=== PATIENT | female | born 1950 | race Two or more races ===

== ENCOUNTER 2017-10-03 11:30 | Outpatient (CLI) | payer OTHER ==
[~2017-10-03 11:30] MED LIST: ASA81 MG PO; FIRST-OMEPR2 MG/1 ML PO; GABAPENTIN600 MG PO; METFORMIN HCL500 MG PO; PRED FORTE0.05 MG/DR OP; QUINAPRIL HCL20 MG PO; TRAVATAN Z5 ML OP; VYTORIN 10/40 M1 TAB PO
== END 2017-10-03 16:35 | disposition home or self-care (01) ==
LOC: RAD 11:30
DX: M54.5 Low back pain (principal)

== ENCOUNTER 2017-12-05 12:29 | Outpatient (CLI) | payer OTHER | END 2017-12-05 12:41 | disposition home or self-care (01) | LOC: MAMO-SONO 12:29 | DX: Z12.31 Encounter for screening mammogram for malignant neoplasm of breast (principal); Z87.898 Personal history of other specified conditions; N64.4 Mastodynia; E55.9 Vitamin D deficiency, unspecified; Z13.820 Encounter for screening for osteoporosis; N64.59 Other signs and symptoms in breast; M89.9 Disorder of bone, unspecified; G62.89 Other specified polyneuropathies; M79.7 Fibromyalgia; E78.89 Other lipoprotein metabolism disorders; E03.8 Other specified hypothyroidism; Z12.11 Encounter for screening for malignant neoplasm of colon; I10 Essential (primary) hypertension ==

== ENCOUNTER 2017-12-09 07:14 | Outpatient (CLI) | payer OTHER | END 2017-12-09 07:24 | disposition home or self-care (01) | LOC: MRI 07:14 | DX: M48.061 Spinal stenosis, lumbar region without neurogenic claudication (principal); M54.5 Low back pain; M62.81 Muscle weakness (generalized) | CPT/HCPCS: 72148 ==

== ENCOUNTER 2018-11-28 07:58 | Outpatient (CLI) | payer OTHER | END 2018-11-28 08:22 | disposition home or self-care (01) | LOC: MRI 07:58 | DX: G95.89 Other specified diseases of spinal cord (principal); R20.0 Anesthesia of skin; G37.8 Other specified demyelinating diseases of central nervous system; M54.2 Cervicalgia | CPT/HCPCS: 70551; 72141 ==

== ENCOUNTER → 2019-02-12 | Outpatient (CLI) | payer OTHER | END | disposition home or self-care (01) | LOC: MRI 11-28 08:45 → RAD 10:22 | DX: M17.0 Bilateral primary osteoarthritis of knee (principal) ==

== ENCOUNTER 2019-02-21 08:24 | Outpatient (CLI) | payer OTHER | END 2019-02-21 08:54 | disposition home or self-care (01) | LOC: LAB 08:24 | DX: D64.89 Other specified anemias (principal); E88.89 Other specified metabolic disorders; D68.8 Other specified coagulation defects; N39.0 Urinary tract infection, site not specified; Z22.322 Carrier or suspected carrier of Methicillin resistant Staphylococcus aureus; I10 Essential (primary) hypertension; E03.8 Other specified hypothyroidism; E55.9 Vitamin D deficiency, unspecified; E11.9 Type 2 diabetes mellitus without complications; E78.2 Mixed hyperlipidemia ==

== ENCOUNTER 2019-03-20 12:47 | Outpatient (CLI) | payer OTHER | END 2019-03-20 12:52 | disposition home or self-care (01) | LOC: MAMO-SONO 12:47 | DX: Z12.31 Encounter for screening mammogram for malignant neoplasm of breast (principal); Z87.898 Personal history of other specified conditions; N60.11 Diffuse cystic mastopathy of right breast; N60.12 Diffuse cystic mastopathy of left breast ==

== ENCOUNTER → 2019-06-04 | Outpatient (CLI) | payer OTHER | END | disposition home or self-care (01) | LOC: SONOGRAMA 08:06 | DX: N18.3 Chronic kidney disease, stage 3 (moderate) (principal) ==

== ENCOUNTER → 2019-06-11 | Outpatient (CLI) | payer OTHER | END | disposition home or self-care (01) | LOC: MRI 14:03 | DX: N28.89 Other specified disorders of kidney and ureter (principal); C64.9 Malignant neoplasm of unspecified kidney, except renal pelvis | CPT/HCPCS: 72197; 74183; A9575 ==

== ENCOUNTER → 2019-06-14 07:15 | Outpatient (CLI) | payer OTHER | END | disposition home or self-care (01) | LOC: LAB 07:15 | DX: I49.8 Other specified cardiac arrhythmias (principal); Z76.89 Persons encountering health services in other specified circumstances; D64.89 Other specified anemias; E88.89 Other specified metabolic disorders; D68.8 Other specified coagulation defects; N39.0 Urinary tract infection, site not specified; Z22.322 Carrier or suspected carrier of Methicillin resistant Staphylococcus aureus; M79.651 Pain in right thigh; M79.604 Pain in right leg ==

== ENCOUNTER 2019-06-26 08:11 | Outpatient (CLI) | payer OTHER | END 2019-06-26 08:27 | disposition home or self-care (01) | LOC: LAB 08:11 | DX: E88.89 Other specified metabolic disorders (principal); E03.8 Other specified hypothyroidism; N39.0 Urinary tract infection, site not specified; D50.0 Iron deficiency anemia secondary to blood loss (chronic) ==

== ENCOUNTER 2019-07-13 10:20 | Outpatient (CLI) | payer OTHER | END 2019-07-13 11:01 | disposition home or self-care (01) | LOC: NUCLEAR 10:20 | DX: I87.2 Venous insufficiency (chronic) (peripheral) (principal); D63.1 Anemia in chronic kidney disease; N18.3 Chronic kidney disease, stage 3 (moderate); E11.22 Type 2 diabetes mellitus with diabetic chronic kidney disease; M17.11 Unilateral primary osteoarthritis, right knee; E87.2 Acidosis; I70.213 Atherosclerosis of native arteries of extremities with intermittent claudication, bilateral legs ==

== ENCOUNTER 2019-07-16 09:47 | Outpatient (CLI) | payer OTHER | END 2019-07-16 09:50 | disposition home or self-care (01) | LOC: NUCLEAR 09:47 | DX: D63.1 Anemia in chronic kidney disease (principal); I70.213 Atherosclerosis of native arteries of extremities with intermittent claudication, bilateral legs; E78.2 Mixed hyperlipidemia; M17.11 Unilateral primary osteoarthritis, right knee; E11.22 Type 2 diabetes mellitus with diabetic chronic kidney disease; N18.3 Chronic kidney disease, stage 3 (moderate) ==

== ENCOUNTER 2019-08-01 08:37 | Outpatient (CLI) | payer OTHER | END 2019-08-01 09:06 | disposition home or self-care (01) | LOC: LAB 08:37 | DX: D50.8 Other iron deficiency anemias (principal); D55.0 Anemia due to glucose-6-phosphate dehydrogenase [G6PD] deficiency; D51.1 Vitamin B12 deficiency anemia due to selective vitamin B12 malabsorption with proteinuria; D51.0 Vitamin B12 deficiency anemia due to intrinsic factor deficiency; E03.8 Other specified hypothyroidism; R97.0 Elevated carcinoembryonic antigen [CEA]; R97.8 Other abnormal tumor markers; D63.1 Anemia in chronic kidney disease; N18.3 Chronic kidney disease, stage 3 (moderate); E11.22 Type 2 diabetes mellitus with diabetic chronic kidney disease; M17.11 Unilateral primary osteoarthritis, right knee; I70.213 Atherosclerosis of native arteries of extremities with intermittent claudication, bilateral legs; I73.89 Other specified peripheral vascular diseases; E11.29 Type 2 diabetes mellitus with other diabetic kidney complication ==

== ENCOUNTER 2019-11-23 07:53 | Outpatient (CLI) | payer OTHER | END 2019-11-23 15:00 | disposition home or self-care (01) | LOC: LAB 07:53 | PROVIDERS: ATTEND Internal Medicine Hematology & Oncology | DX: I73.89 Other specified peripheral vascular diseases (principal); E11.69 Type 2 diabetes mellitus with other specified complication; R80.8 Other proteinuria; E78.00 Pure hypercholesterolemia, unspecified; N39.0 Urinary tract infection, site not specified; R94.4 Abnormal results of kidney function studies; D57.3 Sickle-cell trait; D63.1 Anemia in chronic kidney disease; N18.3 Chronic kidney disease, stage 3 (moderate); E11.22 Type 2 diabetes mellitus with diabetic chronic kidney disease; M17.11 Unilateral primary osteoarthritis, right knee; E78.2 Mixed hyperlipidemia; I70.213 Atherosclerosis of native arteries of extremities with intermittent claudication, bilateral legs; N18.2 Chronic kidney disease, stage 2 (mild); E11.21 Type 2 diabetes mellitus with diabetic nephropathy; D50.8 Other iron deficiency anemias ==

== ENCOUNTER → 2020-02-26 | Outpatient (CLI) | payer OTHER | END | disposition home or self-care (01) | LOC: LAB 16:40 | PROVIDERS: ATTEND Internal Medicine Hematology & Oncology | DX: D50.8 Other iron deficiency anemias (principal); D57.3 Sickle-cell trait; D63.1 Anemia in chronic kidney disease; E11.22 Type 2 diabetes mellitus with diabetic chronic kidney disease; M17.11 Unilateral primary osteoarthritis, right knee; E78.2 Mixed hyperlipidemia; I70.213 Atherosclerosis of native arteries of extremities with intermittent claudication, bilateral legs; I73.89 Other specified peripheral vascular diseases; I10 Essential (primary) hypertension ==

== ENCOUNTER 2020-12-23 10:48 | Outpatient (CLI) | payer OTHER | END 2020-12-23 10:56 | disposition home or self-care (01) | LOC: MAMO-SONO 10:48 | PROVIDERS: ATTEND Internal Medicine Hematology & Oncology | DX: N64.59 Other signs and symptoms in breast (principal); Z12.31 Encounter for screening mammogram for malignant neoplasm of breast; I10 Essential (primary) hypertension; R92.8 Other abnormal and inconclusive findings on diagnostic imaging of breast; E11.22 Type 2 diabetes mellitus with diabetic chronic kidney disease; M17.11 Unilateral primary osteoarthritis, right knee; D57.3 Sickle-cell trait; E78.2 Mixed hyperlipidemia; I70.213 Atherosclerosis of native arteries of extremities with intermittent claudication, bilateral legs; I73.89 Other specified peripheral vascular diseases ==

== ENCOUNTER → 2021-03-31 | Outpatient (CLI) | payer OTHER | END | disposition home or self-care (01) | LOC: PPH VACUNA 08:00 | PROVIDERS: ATTEND Emergency Medicine Pediatric Emergency Medicine | DX: Z23 Encounter for immunization (principal) ==

== ENCOUNTER 2021-08-18 09:04 | Outpatient (CLI) | payer OTHER | END 2021-08-18 09:17 | disposition home or self-care (01) | LOC: RAD 09:04 | PROVIDERS: ATTEND Specialist | DX: J45.998 Other asthma (principal) ==

== ENCOUNTER 2021-09-01 08:00 | Outpatient (CLI) | payer OTHER | END 2021-09-01 08:30 | disposition home or self-care (01) | LOC: PPH VACUNA 08:00 | PROVIDERS: ATTEND Emergency Medicine Pediatric Emergency Medicine | DX: Z23 Encounter for immunization (principal) ==

== ENCOUNTER 2021-10-09 06:29 | Outpatient (CLI) | payer OTHER | END 2021-10-09 07:00 | disposition home or self-care (01) | LOC: MRI 06:29 | PROVIDERS: ATTEND Neuromusculoskeletal Medicine & OMM | DX: M51.26 Other intervertebral disc displacement, lumbar region (principal); M51.36 Other intervertebral disc degeneration, lumbar region | CPT/HCPCS: 72148 ==

== ENCOUNTER 2022-01-11 10:02 | Outpatient (CLI) | payer OTHER | END 2022-01-11 10:04 | disposition home or self-care (01) | LOC: NUCLEAR 10:02 | PROVIDERS: ATTEND Orthopaedic Surgery | DX: M81.0 Age-related osteoporosis without current pathological fracture (principal) ==

== ENCOUNTER 2022-04-12 06:41 | Outpatient (CLI) | payer OTHER | END 2022-04-12 06:57 | disposition home or self-care (01) | LOC: LAB 06:41 | PROVIDERS: ATTEND Orthopaedic Surgery | DX: E55.9 Vitamin D deficiency, unspecified (principal); N18.2 Chronic kidney disease, stage 2 (mild); M85.9 Disorder of bone density and structure, unspecified; E56.1 Deficiency of vitamin K; E11.21 Type 2 diabetes mellitus with diabetic nephropathy; R80.9 Proteinuria, unspecified; N25.81 Secondary hyperparathyroidism of renal origin; E78.2 Mixed hyperlipidemia; D64.9 Anemia, unspecified ==

== ENCOUNTER 2022-04-12 07:43 | Outpatient (CLI) | payer OTHER | END 2022-04-12 07:52 | disposition home or self-care (01) | LOC: MAMO-SONO 07:43 | PROVIDERS: ATTEND Internal Medicine Hematology & Oncology | DX: Z12.31 Encounter for screening mammogram for malignant neoplasm of breast (principal); N63.0 Unspecified lump in unspecified breast; Z64.4 Discord with counselors ==

== ENCOUNTER 2022-04-14 08:44 | Outpatient (CLI) | payer OTHER | END 2022-04-14 08:47 | disposition home or self-care (01) | LOC: LAB 08:44 | PROVIDERS: ATTEND Specialist | DX: E78.2 Mixed hyperlipidemia (principal); D64.9 Anemia, unspecified; N25.81 Secondary hyperparathyroidism of renal origin ==

== ENCOUNTER 2022-05-06 07:55 | Emergency (ER) | payer OTHER ==
[~2022-05-06] VITALS: Ht 167.6 cm; Wt 90.7 kg
== END 2022-05-06 11:07 | disposition home or self-care (01) ==
LOC: ER 07:55
DX: J10.1 Influenza due to other identified influenza virus with other respiratory manifestations (principal); B34.9 Viral infection, unspecified; Z88.6 Allergy status to analgesic agent; Z20.822 Contact with and (suspected) exposure to COVID-19

== ENCOUNTER 2022-07-14 11:18 | Outpatient (CLI) | payer OTHER | END 2022-07-14 13:37 | disposition home or self-care (01) | LOC: RAD 11:18 | PROVIDERS: ATTEND Specialist | DX: J45.991 Cough variant asthma (principal) ==

== ENCOUNTER → 2025-04-30 07:27 | Outpatient (CLI) | payer OTHER | END | disposition home or self-care (01) | LOC: NUCLEAR 04-05 07:00 | PROVIDERS: ATTEND Internal Medicine | DX: I20.1 Angina pectoris with documented spasm (principal) | CPT/HCPCS: 78452; 93017; A9500; J0153 ==